=== PATIENT | male | born 1975 | race Two or more races ===

== ENCOUNTER 2016-06-10 09:34 | Emergency (ER) | payer SELFPAY ==
[~2016-06-10] VITALS: Ht 175.3 cm; Wt 72.7 kg
[~2016-06-10 09:34] MED LIST: METO-448 PO
[2016-06-10] MEDS ORDERED: ADENOSINE 4 ML ONE (09:35)
[2016-06-10 09:36] VITALS: Ht 175.3 cm; Wt 72.7 kg
[2016-06-10] MEDS ORDERED: SOD CHLORIDE 0.9% 1,000 ML IV STA (09:43)
[2016-06-10] MEDS ORDERED: METOPROLOL 5 MG INJ IV STA (09:43)
[2016-06-10] MEDS ORDERED: ASPIRIN 325 MG TAB PO STA (09:43)
[2016-06-10] MEDS ORDERED: ADENOSINE 6 MG INJ IV STA (09:43)
[2016-06-10 10:05] LABS: ADD SCAN DIFF NO
--- NOTE | 2016-06-10 10:05 | RADRPT ---
PROCEDURE: XR Chest. CLINICAL INDICATION: Chest pain with tachycardia. TECHNIQUE: Single frontal view of the chest was obtained COMPARISON: Chest x-ray 10/09/2015. FINDINGS: The soft tissues are normal. The bony elements are normal. The heart, cardiomediastinal silhouette and hilar structures are normal. The pulmonary vasculature is normal. There is a left-sided aorta. Lungs are clear. The costophrenic angles are normal. There are linear foreign body artifacts proje cting across the heart of unclear etiology not seen on the prior study. IMPRESSION: 1. Normal chest x-ray with no evidence of active cardiopulmonary disease. 2. Foreign body artifacts project across the heart of uncertain etiology. RPTAT:AAJJ Physician Jimbo Date Time Electronically viewed and signed by Physician Jimbo on 06/10/2016 10:05 JM/
[2016-06-10 10:19] LABS: ALBUMIN 4.3 g/dl (3.3-4.9); CHLORIDE 100 mmol/L (97-110)
[2016-06-10 10:20] LABS: POTASSIUM 3.4 mmol/L (3.5-5.1); SODIUM 141 mmol/L (135-144)
[2016-06-10 10:22] LABS: ALBUMIN/GLOBULIN RATIO 1.13; ALKALINE PHOSPHATASE 77 IU/L (42-121); ANION GAP 15 (8-16); ASPARTATE AMINO TRANSFERASE 22 IU/L (15-46); BILIRUBIN,INDIRECT 0.2 mg/dl (0-1.1); BILIRUBIN,TOTAL 0.2 mg/dl (0.2-1.3); CARBON DIOXIDE 29 mmol/L (21-31); CREATININE 0.91 mg/dl (0.61-1.24); TOTAL PROTEIN 8.1 g/dl (6.1-8.1)
[2016-06-10 10:23] LABS: ALANINE AMINOTRANSFERASE 24 IU/L (13-69); BASOPHILS % 0.2 % (0.0-2.0); BLOOD UREA NITROGEN 15 mg/dl (7-20); CREATINE KINASE 62 IU/L (23-200); EOSINOPHILS # 0.1 10^3/ul (0.0-0.5); EOSINOPHILS % 0.8 % (0.0-7.0); GLUCOSE 103 mg/dl (70-220); HEMATOCRIT 47.5 % (42.0-52.0); HEMOGLOBIN 16.8 g/dl (14.0-18.0); LYMPHOCYTES # 2.4 10^3/ul (0.8-2.9); LYMPHOCYTES % 20.1 % (15.0-51.0); MEAN CORPUSCULAR HEMOGLOBIN 29.8 pg (29.0-33.0); MEAN CORPUSCULAR HGB CONC 35.4 g/dl (32.0-37.0); MEAN CORPUSCULAR VOLUME 84.2 fl (82.0-101.0); MEAN PLATELET VOLUME 10.3 fl (7.4-10.4); MONOCYTE # 1.1 10^3/ul (0.3-0.9); MONOCYTES % 9.3 % (0.0-11.0); NEUTROPHIL # 8.1 10^3/ul (1.6-7.5); NEUTROPHILS % 69.3 % (39.0-77.0); PLATELET COUNT 201 10^3/UL (140-415); RED BLOOD COUNT 5.64 10^6/ul (4.70-6.10); RED CELL DISTRIBUTION WIDTH 14.2 % (11.5-14.5); WHITE BLOOD COUNT 11.7 10^3/ul (4.8-10.8)
[2016-06-10 10:26] LABS: INR 0.93; PROTIME 12.5 Sec (12.2-14.2)
[2016-06-10 10:27] LABS: PARTIAL THROMBOPLASTIN TIME 40.4 Sec (25.0-35.0)
[2016-06-10 10:30] LABS: B-TYPE NATRIURETIC PEPTIDE 16 PG/ML (0-125)
[2016-06-10 10:33] LABS: CK-MB 0.72 ng/ml (0.0-2.4); TROPONIN-I < 0.012 ng/ml (0.00-0.12)
--- NOTE | 2016-06-10 12:06 | ERD ---
ER Documentation Chief Complaint Date/Time DATE: 06/10/16 TIME: 11:56 Chief Complaint SVT; palpitations and cp HPI This is a very pleasant 41-year-old male who presents to the emergency department with a sudden onset of palpitations that occurred just prior to arrival. Contrary to the triage note the patient is not complaining of any chest pain or pressure at this time. He states that shortly after awakening he developed a feeling as though his heart was racing and had a similar episode 6 months prior to arrival when he was diagnosed with supraventricular tachycardia. EMS administered 6 mg of adenosine followed by 12 mg of adenosine with no improvement of his symptoms. Therefore the patient was initially brought to the emergency department to be further evaluated. He denies any fever shaking or chills. He denies a headache. He did indicate he was drinking alcohol with friends yesterday evening and has history of tobacco use. ROS All systems reviewed and are negative except as per history of present illness. Medications Home Meds Discontinued Scripts Metoprolol Tartrate* (Lopressor*) 25 Mg Tab, 12.5 MG PO BID, #60 TAB Prov:LAURA HARMON DO 10/09/15 Allergies Allergies: Coded Allergies: No Known Allergy (Unverified , 06/10/16) PMhx/Soc History of Surgery: Yes (APPY 1993) Anesthesia Reaction: No Hx Neurological Disorder: No Hx Respiratory Disorders: No Hx Cardiac Disorders: Yes (HX OF SVT) Hx Psychiatric Problems: No Hx Miscellaneous Medical Probl: No Hx Alcohol Use: Yes Hx Substance Use: No Hx Tobacco Use: Yes Smoking Status: Current every day smoker Physical Exam Vitals Vital Signs Date Time Temp Pulse Resp B/P Pulse Ox O2 Delivery O2 Flow Rate FiO2 06/10/16 11:24 93 18 105/65 98 Nasal Cannula 4.0 06/10/16 10:22 109 18 110/80 100 Nasal Cannula 4.0 06/10/16 09:58 110 18 118/79 100 Nasal Cannula 5.0 06/10/16 09:56 110 18 111/64 100 Room Air 06/10/16 09:55 Nasal Cannula 5 06/10/16 09:36 98.8 192 22 130/82 99 Physical Exam Constitutional:Well-developed. Well-nourished. HEENT:Normocephalic. Atraumatic.Pupils were equal round reactive to light. Moist mucous membranes.No tonsillar exudates. Neck: No nuchal rigidity. No lymphadenopathy. No posterior cervical spine tenderness or step-offs. No thyromegaly Respiratory: Not using accessory muscles of respiration.Lungs were clear to auscultation bilaterally. No rhonchi. No rales. No wheezing. Cardiovascular: Tachycardic with regular rhythm.No murmurs. No rubs were appreciated.S1, S2 normal. Distal pulses are palpable 2+ bilaterally. GI: Abdomen was soft. Nontender. Non Distended. No pulsatile abdominal masses or bruits. No rebound. No guarding. Bowel sounds were present and normal. Muscle skeletal: Full range of motion of both the upper and lower extremities bilaterally.Normal muscle tone.No assymetrical calf tenderness or swelling. Skin: No petechia, no purpura. No lesions on the palms or the soles of the feet. No maculopapular rash. NEURO: Patient was alert, awake, orientated x3.No facial droop. Gait observed and normal with no ataxia.Speech had regular rate and rhythm. No focal neurological deficits. Result Diagram: 06/10/16 0950 06/10/16 0950 Results 24 hrs Laboratory Tests Test 06/10/16 09:50 White Blood Count 11.710^3/ul Red Blood Count 5.6410^6/ul Hemoglobin 16.8g/dl Hematocrit 47.5% Mean Corpuscular Volume 84.2fl Mean Corpuscular Hemoglobin 29.8pg Mean Corpuscular Hemoglobin Concent 35.4g/dl Red Cell Distribution Width 14.2% Platelet Count 10509^3/UL Mean Platelet Volume 10.3fl Neutrophils % 69.3% Lymphocytes % 20.1% Monocytes % 9.3% Eosinophils % 0.8% Basophils % 0.2% Nucleated Red Blood Cells % 0.0/100WBC Neutrophils # 8.110^3/ul Lymphocytes # 2.410^3/ul Monocytes # 1.110^3/ul Eosinophils # 0.110^3/ul Basophils # 0.010^3/ul Nucleated Red Blood Cells # 0.010^3/ul Prothrombin Time 12.5Sec Prothrombin Time Ratio 1.0 INR International Normalized Ratio 0.93 Activated Partial Thromboplast Time 40.4Sec Sodium Level 141mmol/L Potassium Level 3.4mmol/L Chloride Level 100mmol/L Carbon Dioxide Level 29mmol/L Anion Gap 15 Blood Urea Nitrogen 15mg/dl Creatinine 0.91mg/dl Glucose Level 103mg/dl Calcium Level 9.0mg/dl Total Bilirubin 0.2mg/dl Direct Bilirubin 0.00mg/dl Indirect Bilirubin 0.2mg/dl Aspartate Amino Transf (AST/SGOT) 22IU/L Alanine Aminotransferase (ALT/SGPT) 24IU/L Alkaline Phosphatase 77IU/L Creatine Kinase 62IU/L Creatine Kinase Index 1.2 Creatinine Kinase MB (Mass) 0.72ng/ml Troponin I < 0.012ng/ml B-Type Natriuretic Peptide 16PG/ML Total Protein 8.1g/dl Albumin 4.3g/dl Globulin 3.80g/dl Albumin/Globulin Ratio 1.13 Current Medications Medications (Trade) Dose Ordered Sig/Teresa Route PRN Reason Start Time Stop Time Status Last Admin Dose Admin Aspirin (Aspirin) 325 mg ONCE STAT PO 06/10/16 09:43 06/10/16 09:46 DC 06/10/16 10:08 Adenosine (Adenosine) 12 mg ONCE STAT IV 06/10/16 09:43 06/10/16 09:46 DC 06/10/16 10:05 Metoprolol Tartrate 5 mg 5 mg ONCE STAT IV 06/10/16 09:43 06/10/16 09:46 DC 06/10/16 10:09 Sodium Chloride (NS) 1,000 ml @ 1,000 mls/hr Q1H STAT IV 06/10/16 09:43 06/10/16 10:42 DC 06/10/16 10:14 Procedures/MDM This patient presented to the emergency department with a narrow complex tachycardia. ACLS protocol was followed. The patient was immediately sent a nurse monitoring continuous pulse oximetry and IV access was established by nursing staff. 12 Lead EKG tracing ordered and reviewed by myself showed at 9:03: Narrow complex tachycardia 188 bpm and no arrhythmia. LA interval normal. QRS duration narrow at [address] segment depression No ST segment elevation No ST segment depression. No changes consistent with acute ischemia. The patient was given 12 mg of adenosine intravenously. 12 Lead EKG repeat tracing ordered and reviewed by myself showed at 9:42: Sinus tachycardia of 109 bpm and no arrhythmia. LA interval normal. QRS duration normal. No ST segment elevation No ST segment depression. No changes consistent with acute ischemia. Chest radiograph for and reviewed by myself showed no pneumonia infiltrates or cardiomegaly. The patient had no electrolyte abnormalities. There is no evidence of an elevated troponin and the patient has no cardiac risk factors. I did feel the patient could be safely discharged home and he was instructed to follow-up with a inspector and adjuster golf club head for further evaluation. Critical Care: Time: 60 minutes Treatments/Evaluations: Close monitoring and treatment of unstable vital signs, cardiorespiratory, and neurologic status, while maintaining tight balance of fluid, respiratory, and cardiac interventions. Time does not include performing any of the above billable procedures. The patient was discharged home in fair condition. They were instructed to return to the emergency department at any time if there was any worsening of their condition. The patient stated they would follow up with their PCP in the next 24-48 hours to initiate a suitable medication regimen under the care of their PCP as well as to allow their PCP to monitor any drug reactions. The patient was discharged home with prescriptions after they gave informed consent to the new medication. They were also fully informed by myself on the adverse effects and adverse drug interactions in order to provide adequate safeguards to prevent possible adverse reactions to medications. Departure Diagnosis: Primary Impression: Paroxysmal SVT (supraventricular tachycardia) Condition: Fair Patient Instructions: SVT DELORES MIGUEL Jun 10, 2016 12:06
[2016-06-10 12:16] VITALS: BP 100/58; PULSE 78; RESP 18
== END 2016-06-10 12:17 | disposition home or self-care (01) ==
LOC: E/R 09:34
DX: I47.1 Supraventricular tachycardia (principal); R40.2252 Coma scale, best verbal response, oriented, at arrival to emergency department; F17.210 Nicotine dependence, cigarettes, uncomplicated; R07.9 Chest pain, unspecified
CPT/HCPCS: 71010; 80053; 82550; 82553; 83880; 84484; 85025; 85610; 85730; 93005; 96374; 96375; 99285; J0153; J7030